=== PATIENT | female | born 1940 | race Caucasian/White ===

== ENCOUNTER 2017-01-25 23:40 | Emergency (ER) | payer MEDICARE, OTHER ==
--- NOTE | 2017-01-26 00:05 | ED.PDOC ---
History of Present Illness - General Chief Complaint: Trauma Stated Complaint: fall, head injury Time Seen by Provider: 01/26/17 00:01 Source: patient Exam Limitations: no limitations - History of Present Illness Initial Comments: PT REPORTS THAT SHE WAS BACKING OUT OF HER SLIPPERS WHEN SHE LOST HER BALANCE AND FELL BACKWARDS HITTING HER HEAD ON THE DOOR JAMB AND NIGHTSTAND. PT DENIES LOSS OF CONSCIOUSNESS BUT DOES REPORT FEELING DIZZY AND REPORTS MILD HEADACHE AND NECK PAIN. Occurred: just prior to arrival Severity: mild Pain Location: head, neck Method of Injury: fall Improving Factors: nothing Worsening Factors: nothing Loss of Consciousness: no loss of consciousness Associated Symptoms (Fall): dizziness, headache Allergies/Adverse Reactions: Allergies Codeine Allergy (Verified 01/26/17 00:10) Penicillins Allergy (Verified 01/26/17 00:10) Home Medications: Ambulatory Orders Aspirin [Aspirin Adult Low Dose] 81 mg PO DAILY 01/26/17 Atorvastatin Calcium [Lipitor] 10 mg PO DAILY 01/26/17 Cetirizine HCl [ZyrTEC] 10 mg PO DAILY 01/26/17 Olmesartan Medoxomil-Hydrochlo [Benicar Hct 20-12.5 mg] 1 tab PO DAILY 01/26/17 Omeprazole Magnesium [Prilosec Otc] 20 mg PO DAILY 01/26/17 Red Blanding [place]is[place] Extract [Promensil] 500 mg PO DAILY 01/26/17 Review of Systems - Review of Systems Constitutional: Denies: chills, fever EENTM: Denies: ear pain, nose congestion Respiratory: Denies: cough, short of breath Cardiology: Denies: chest pain, palpitations Gastrointestinal/Abdominal: Denies: nausea, vomiting Genitourinary: Denies: frequency, hematuria Musculoskeletal: States: see HPI, neck pain. Denies: joint pain Skin: Denies: change in color, dryness Neurological: States: see HPI, headache. Denies: paresthesia Endocrine: States: no symptoms reported Hematologic/Lymphatic: States: no symptoms reported Past Medical History (General) - Patient Medical History Hx MRSA: Yes - Abdomen 2012, Abdomen 2015 MRSA Source:: Wound Family Medical History - Family History Mother Living Status: Cause of : lung cancer Hx Family Cancer: Yes Hx Family;Other: Lung cancer Father Living Status: Cause of : heart attack Hx Family Hypertension: Yes Hx Cardiac Disease: Yes Physical Exam - Physical Exam General Appearance: Alert, Comfortable, No apparent distress Head Injury: no evidence of injury Eye Exam: bilateral normal ENT Exam: hearing grossly normal - SMALL SUPERFICIAL LACERATION LOCATED ON L EAR. Neck Exam: non-tender, normal alignment, normal inspection - C COLLAR IN PLACE Gastrointestinal/Abdominal: non tender, soft Back Exam: normal inspection, vertebral tenderness - LUMBAR REGION Extremity Exam: no evidence of injury Neurologic: no motor/sensory deficits, alert, normal mood/affect, oriented x 3 Skin Exam: normal color, warm/dry - Prentiss Coma Score Best Eye Response (Prentiss): (4) open spontaneously Best Verbal Response (Prentiss): (5) oriented Best Motor Response (Prentiss): (6) obeys commands Maxime Total: 15 Progress - Progress Progress: 01/26/17 01:30 PREVIOUS RECORDS REVIEWED REVEALING PT HAS NO PRIOR VISITS TO THE ED. 01/26/17 01:57 PT RESTING COMFORTABLY, CT AND XRAY FINDINGS DISCUSSED. C-COLLAR REMOVED. PT ABLE TO MOVE NECK WITHOUT PAIN. - EKG/XRAY/CT XRAY: LUMBAR SPINE Xray Comments: NEGATIVE PER RAD CT: HEAD/C-SPINE: NEGATIVE PER RAD Departure - Departure Clinical Impression: Strain of neck muscle, Head injury due to trauma, Lumbar contusion Time of Disposition: 02:00 Disposition: Discharge to Home or Self Care Condition: Good Departure Forms: ED Discharge - Pt. Copy, Patient Portal Self Enrollment Instructions: DI for Cervical Muscle Strain, DI for Closed Head Injury Referrals: Blaine Escobedo III, MD [Primary Care Provider] - 1-5 Days Home Medications: Ambulatory Orders Aspirin [Aspirin Adult Low Dose] 81 mg PO DAILY 01/26/17 Atorvastatin Calcium [Lipitor] 10 mg PO DAILY 01/26/17 Cetirizine HCl [ZyrTEC] 10 mg PO DAILY 01/26/17 Olmesartan Medoxomil-Hydrochlo [Benicar Hct 20-12.5 mg] 1 tab PO DAILY 01/26/17 Omeprazole Magnesium [Prilosec Otc] 20 mg PO DAILY 01/26/17 Red Blanding [place]is[place] Extract [Promensil] 500 mg PO DAILY 01/26/17
--- NOTE | 2017-01-26 00:54 | CT ---
EXAM: CT head without contrast. INDICATION: Headache. TECHNIQUE: Contiguous axial CT images of the brain. Intravenous contrast: Absent. DLP 773 mGy-cm. This exam was performed according to our departmental dose-optimization program, which includes automated exposure control, adjustment of the mA and/or kV according to patient size and/or use of iterative reconstruction technique. COMPARISON: None. FINDINGS: Subcutaneous: Unremarkable. No acute intracranial hemorrhage. There is mild diffuse cerebral atrophy with mild periventricular and deep white matter chronic microvascular changes. No midline shift. No mass effect. Ventricles: No hydrocephalus. Farley-white differentiation preserved. Paranasal sinuses/mastoid air cells: Visualized portions are aerated. Bones/orbits: Visualized portions are unremarkable. IMPRESSION: 1. No CT evidence of acute intracranial hemorrhage. Electronically signed by: Isauro Osei MD 01/26/2017 12:54 AM CDT Workstation: [id number]
[2017-01-26 01:02] VITALS: O2SAT 95
--- NOTE | 2017-01-26 01:25 | RAD ---
EXAM: Three view(s) of the lumbar spine. INDICATION: Pain, lumbar spine. COMPARISON: None. FINDINGS: Alignment: Intact. Fracture: No acute compression fracture or subluxation. IMPRESSION: 1. No acute compression fracture. Electronically signed by: Isauro Osei MD 01/26/2017 1:25 AM CDT Workstation: [id number]
--- NOTE | 2017-01-26 01:33 | CT ---
EXAM: CT cervical spine without contrast. INDICATION: Trauma. Neck pain. TECHNIQUE: Contiguous axial CT images of the cervical spine. Intravenous contrast: Absent. Reformats: MPRs created and utilized. DLP 317 mGy-cm. This exam was performed according to our departmental dose-optimization program, which includes automated exposure control, adjustment of the mA and/or kV according to patient size and/or use of iterative reconstruction technique. COMPARISON: None. FINDINGS: Alignment: There is minimal grade one anterolisthesis of C4 over C5 Fracture: No acute fracture or subluxation. Odontoid process: Intact. Prevertebral soft tissues: No edema. Spondylosis: There is multilevel spondylosis, worst at C5-C6 with disc space narrowing, endplate sclerosis and marginal osteophytes. Other: None. IMPRESSION: 1. No CT evidence of acute osseous injury of the cervical spine. Electronically signed by: Isauro Osei MD 01/26/2017 1:33 AM CDT Workstation: [id number]
[2017-01-26] MEDS: ACETAMINOPHEN 500 MG TAB PO ONE (02:01)
[2017-01-26 02:55] VITALS: BP 143/65; TEMP 98.1
== END 2017-01-26 02:55 | disposition home or self-care (01) ==
LOC: ER 23:40
DX: S09.90XA Unspecified injury of head, initial encounter (principal); S16.1XXA Strain of muscle, fascia and tendon at neck level, initial encounter; S30.0XXA Contusion of lower back and pelvis, initial encounter; Z88.6 Allergy status to analgesic agent; Z88.0 Allergy status to penicillin; Z79.82 Long term (current) use of aspirin; Z86.14 Personal history of Methicillin resistant Staphylococcus aureus infection; Z79.899 Other long term (current) drug therapy; W19.XXXA Unspecified fall, initial encounter; Y92.9 Unspecified place or not applicable

== ENCOUNTER → 2017-06-08 | Outpatient (CLI) | payer MEDICARE, OTHER | END | disposition home or self-care (01) | LOC: GMAL 10:50 | PROVIDERS: ATTEND Family Medicine | DX: R53.83 Other fatigue (principal); D51.3 Other dietary vitamin B12 deficiency anemia; E55.9 Vitamin D deficiency, unspecified ==

== ENCOUNTER → 2017-06-14 | Outpatient (CLI) | payer MEDICARE, OTHER ==
--- NOTE | 2017-06-15 17:12 | MAM ---
EXAM DESCRIPTION: 3D Screening BILATERAL : Digital Mammography. CLINICAL HISTORY: 77 years Female SCREENING . No complaints. No family history of breast cancer. Postmenopausal. No HRT. COMPARISON: 2-D digital screening bilateral studies on December 24, 2014 and June 18, 2013. No prior reports available. TECHNIQUE: Bilateral CC and MLO projection full-field images, 3-D tomosynthesis digital mammographic technique. Also bilateral synthesized CC/ MLO full-field images. CAD not utilized. FINDINGS: The breast parenchymal density pattern is: Scattered areas of fibroglandular density. No skin thickening or nipple retraction bilateral solitary microcalcifications. Bilateral intramammary lymph nodes. No focal, stellate mass or density, focal asymmetry , and no suspicious microcalcifications laterally. Stable mammograms compared to prior studies, taking into account differences in mammographic technique IMPRESSION: BI-RADS CATEGORY: 2 - BENIGN FINDINGS. FOLLOW UP: Routine digital bilateral screening, one year interval from May 2017. Written communication explaining the IMPRESSION and follow-up, will be mailed to the patient and referring health care provider. According to the [employer], yearly mammograms are recommended starting at age 40 and continuing as long as a woman is in good health. Any breast change noted on a breast self-exam should be reported promptly to the patient's healthcare provider. Breast MRI is recommended for women with an approximately 20-25% or greater lifetime risk of breast cancer, including women with a strong family history of breast or ovarian cancer and women who have been treated for Hodgkin's disease. A negative mammographic report should not delay tissue diagnosis in patients with significant clinical history or physical findings. Extremely dense breast tissue limits the sensitivity of digital mammography. Electronically signed by: Dung Dexter MD 06/15/2017 5:10 PM CDT
== END | disposition home or self-care (01) ==
LOC: MAMMO 11:12
PROVIDERS: ATTEND Family Medicine
DX: Z12.31 Encounter for screening mammogram for malignant neoplasm of breast (principal)
CPT/HCPCS: 77063; G0202

== ENCOUNTER → 2018-01-11 | Outpatient (CLI) | payer MEDICARE, OTHER ==
--- NOTE | 2018-01-12 10:33 | US ---
THYROID ULTRASOUND CLINICAL INFORMATION: Thyroid nodules. TECHNIQUE: Routine transcutaneous scannin-D and Doppler modes. COMPARISON: None. FINDINGS: Thyroid size: Right 4.2 x 1.7 x 1.6 cm. Left 3.8 x 1.7 x 1.0 cm. Isthmus 1.9 mm thickness. Texture: Heterogeneous. Estimated total number of nodules >/=1 cm: 2 Number of spongiform nodules >/=2 cm not described below (TR1): 0 Number of mixed cystic and solid nodules >/=1.5 cm not described below (TR2): 0 Nodule #: 1 Maximum size: 2.1 cm; All dimensions 1.7 x 1.2 cm Location: right; lower Composition: solid/almost completely solid (2) Echogenicity: very hypoechoic (3) Shape: not [id number]-[id number] (0) Margins: smooth (0) Echogenic foci: none (0) ACR TI-RADS total points: 5. ACR TI-RADS risk category: TR4 (4-6 points) No prior study. ACR TI-RADS recommendation: Ultrasound-guided fine needle aspiration Nodule #: 2 Maximum size: 1.0 cm; All dimensions 1.0 x 0.5 cm Location: right; mid Composition: solid/almost completely solid (2) Echogenicity: hypoechoic (2) Shape: not clflac-ynsv-vufu (0) Margins: smooth (0) Echogenic foci: none (0) ACR TI-RADS total points: 4. ACR TI-RADS risk category: TR4 (4-6 points) No prior study. ACR TI-RADS recommendation: Follow-up ultrasound in 1 year Nodule #: 3 Maximum size: 0.6 cm; All dimensions 0.5 x 0.4 cm Location: left; mid Composition: spongiform (0) Echogenicity: hypoechoic (2) Shape: not ovfokr-ixao-wmgy (0) Margins: smooth (0) Echogenic foci: none (0) ACR TI-RADS total points: 2. ACR TI-RADS risk category: TR2 (2 points) No prior study. ACR TI-RADS recommendation: No further follow-up Soft tissues around the thyroid gland: No distinct solid mass or cyst. No large calcifications or parenchymal edema. No overlying skin changes. No abnormal vascularity. IMPRESSION: 1. 2.1 cm solid hypoechoic nodule (# 1) in the lower right lobe. ACR TI-RADS risk category TR 4. Ultrasound-guided fine-needle aspiration sampling recommended due to size greater than 1.5 cm. Please see below.* 2. 1.0 cm solid hypoechoic nodule(#2) in the mid right lobe. ACR TI-RADS risk category TR 4. One year ultrasound follow-up is recommended. 3. 6 mm spongiform nodule (#3) in the mid left lobe. No ultrasound follow-up is recommended. 4. Soft tissues around the thyroid gland are unremarkable. *ACR TI-RADS recommendations: TR5 (>/=7 points) - FNA if >/=1 cm, follow-up if 0.5 - 0.9 cm every year for 5 years TR4 (4-6 points) - FNA if >/=1.5 cm, follow-up if 1 - 1.4 cm in 1, 2, 3 and 5 years TR3 (3 points) - FNA if >/=2.5 cm, follow -up if 1.5 - 2.4 cm in 1, 3 and 5 years TR2 (2 points) and TR1 (0 points) - No FNA or follow-up * ACR TI-RADS recommends that no more than two nodules with the highest ACR TI-RADS total point should be biopsied and no more than four nodules should be followed. Electronically signed by: Dung Dexter MD 01/12/2018 10:32 AM CDT
== END ==
LOC: US 13:50
PROVIDERS: ATTEND Family Medicine
DX: E04.1 Nontoxic single thyroid nodule (principal)

== ENCOUNTER → 2018-01-26 | Outpatient (CLI) | payer MEDICARE, OTHER ==
--- NOTE | 2018-01-26 10:38 | US ---
Thyroid Ultrasound Biopsy CLINICAL INFORMATION: Hypoechoic 2.1 cm nodule in the right lobe on prior thyroid ultrasound 01/11/2018. TECHNIQUE: Procedure was explained to the patient with risks and benefits. The patient gave verbal and written consent. Sterile preparation draping. 1% xylocaine dermal anesthetic 9-1 mixture with sodium bicarbonate. Sterile ultrasound guidance. A total of 5 passes right thyroid nodule; 3 needle samplings with a separate 1.5 inch, 25-gauge needle per sample, and 2 aspirations, with a separate 1.5 inch, 25-gauge needle/10-cc syringe set, per aspiration. Each sample was placed on a separate slide and fixed in 95% alcohol container. Saccomanno fluid drawn into aspirate needle and rinse injected into Saccomanno container. Specimens to be sent for pathologic examination at remote facility. . Patient tolerated procedure well. Biopsy #: 1 Nodule reference number based on prior diagnostic ultrasound:1 Maximum size: 2.1 cm Location: right; lower ACR TI-RADS risk category: TR4 (4-6 points) Reason for biopsy: meets ACR TI-RADS criteria Complications: None IMPRESSION: Successful ultrasound guided fine needle aspiration of solid hypoechoic thyroid nodule in the lower right lobe, ACR TI-RADS risk category TR 4. Electronically signed by: Dung Dexter MD 01/26/2018 10:37 AM CDT
== END ==
LOC: US 09:00
PROVIDERS: ATTEND Family Medicine
DX: E04.1 Nontoxic single thyroid nodule (principal)

== ENCOUNTER → 2018-07-03 | Outpatient (CLI) | payer MEDICARE, OTHER | LOC: GMAL 11:07 | PROVIDERS: ATTEND Family Medicine | DX: D51.3 Other dietary vitamin B12 deficiency anemia (principal); R53.83 Other fatigue; E55.9 Vitamin D deficiency, unspecified ==

== ENCOUNTER → 2018-07-19 | Outpatient (CLI) | payer MEDICARE, OTHER ==
--- NOTE | 2018-07-21 08:57 | MAM ---
EXAM DESCRIPTION: 3D Screening BILATERAL : Digital Mammography. CLINICAL HISTORY: 78 years Female SCREENING . No complaints. No personal or family history of breast cancer. Childbirth. Postmenopausal. 40 years. No HRT. Lifetime risk of developing breast cancer (Tyrer-Cuzick model)(%): 3.1. COMPARISON: Bilateral screening digital breast tomosynthesis 06/14/2017. TECHNIQUE: Bilateral CC and MLO projection full-field images, digital tomosynthesis mammographic technique. Bilateral digital 2-D full-field MLO images. CAD not available for tomosynthesis or 2-D images. FINDINGS: The breast parenchymal density pattern is: Scattered areas of fibroglandular density. No skin thickening or nipple retraction. Bilateral small solitary calcifications. Small vascular calcification on the right. No new focal, stellate mass or density, focal asymmetry , and no suspicious microcalcifications bilaterally. Stable mammograms compared to prior study. Taking into account, differences in mammographic technique. IMPRESSION: Benign exam. BIRAD CATEGORY: 2 BENIGN FINDINGS. RECOMMENDATIONS: FOLLOW UP: Routine digital bilateral mammographic screening, one year interval from June 2018. Written communication explaining the IMPRESSION and follow-up, will be mailed to the patient and referring health care provider. According to the [employer], yearly mammograms are recommended starting at age 40 and continuing as long as a woman is in good health. Any breast change noted on a breast self-exam should be reported promptly to the patient's healthcare provider. Breast MRI is recommended for women with an approximately 20-25% or greater lifetime risk of breast cancer, including women with a strong family history of breast or ovarian cancer and women who have been treated for Hodgkin's disease. A negative mammographic report should not delay tissue diagnosis in patients with significant clinical history or physical findings. Extremely dense breast tissue limits the sensitivity of digital mammography. Electronically signed by: Dung Dexter MD 07/21/2018 8:55 AM [employer]ALLIST[employer] TEACHER
== END ==
LOC: MAMMO 15:00
PROVIDERS: ATTEND Family Medicine
DX: Z12.31 Encounter for screening mammogram for malignant neoplasm of breast (principal)

== ENCOUNTER → 2019-01-02 | Outpatient (CLI) | payer MEDICARE, OTHER | LOC: GMAL 10:28 | PROVIDERS: ATTEND Family Medicine | DX: E55.9 Vitamin D deficiency, unspecified (principal); I10 Essential (primary) hypertension; E11.9 Type 2 diabetes mellitus without complications; E78.49 Other hyperlipidemia ==

== ENCOUNTER → 2019-04-03 | Outpatient (CLI) | payer MEDICARE, OTHER | LOC: GMAL 10:57 | PROVIDERS: ATTEND Family Medicine | DX: M10.9 Gout, unspecified (principal); I10 Essential (primary) hypertension; E11.9 Type 2 diabetes mellitus without complications; E78.49 Other hyperlipidemia ==

== ENCOUNTER → 2019-05-09 | Outpatient (CLI) | payer MEDICARE, OTHER | LOC: GMAL 10:57 | PROVIDERS: ATTEND Family Medicine | DX: M10.9 Gout, unspecified (principal); I10 Essential (primary) hypertension ==

== ENCOUNTER → 2019-12-04 | Outpatient (CLI) | payer MEDICARE, OTHER | LOC: GMAL 11:15 | PROVIDERS: ATTEND Family Medicine | DX: M10.9 Gout, unspecified (principal); I10 Essential (primary) hypertension; E11.9 Type 2 diabetes mellitus without complications; E78.49 Other hyperlipidemia ==

== ENCOUNTER 2020-07-25 12:45 | Emergency (ER) | payer MEDICARE, OTHER ==
[2020-07-25] MEDS ORDERED: SODIUM CHLORIDE 0.9% (FLUSH) 10 ML SYG IV PRN (12:54)
[2020-07-25] MEDS ORDERED: NITROGLYCERIN 0.4 MG 25 EA TAB SL ONE ×2 (12:55→13:53)
--- NOTE | 2020-07-25 12:57 | ED.PDOC ---
History of Present Illness - General Time Seen by Provider: 07/25/20 12:54 Source: patient, EMS - History of Present Illness Initial Comments: 80-year-old female with past medical history of hypertension, GERD who is brought in by EMS from home for chief complaint of chest pain. Reports that symptoms began last night around 10 PM shortly after eating. Reports as feeling of indigestion in the lower anterior central chest wall which radiates to the up per back between the shoulder blades, was constant and severe/sharp last night at 10/10 severity. She reports that she did take some Prilosec 40 mg last night w/o relief and then Mylanta this morning and the pain has now eased to about 6/10 severity. Pain does not worsen with activity/exertion. She does report intermittent dry cough but denies any dyspnea, fevers, chills, nausea/vomiting/diarrhea, leg swelling. No reported cardiac history. EMS reported blood pressure slightly elevated and slightly abnormal EKG without ST elevations in route. Pain seemed to improve somewhat with 1 nitroglycerin and 4 baby aspirins in route. Allergies/Adverse Reactions: Allergies Codeine Allergy (Verified 07/25/20 13:21) Penicillins Allergy (Verified 07/25/20 13:21) Home Medications: Ambulatory Orders Atorvastatin Calcium [Lipitor] 10 mg PO DAILY 01/26/17 Losartan Potassium & Hydrochlo [Losartan Potassium/Hydroc 50-12.5 mg] 1 tab PO 03/29/18 Review of Systems - Review of Systems Review of Systems: 07/25/20 12:57 as per HPI All other Systems: Reviewed and Negative Past Medical History (General) - Patient Medical History Hx Seizures: No Hx Stroke: No Hx Dementia: No Hx Asthma: No Hx of COPD: No Hx Cardiac Disorders: No Hx Congestive Heart Failure: No Hx Pacemaker: No Hx Hypertension: Yes Hx Thyroid Disease: No Hx Diabetes: No Hx Gastroesophageal Reflux: No Hx Renal Disease: No Hx Cancer: No Hx of HIV: No Hx Hepatitis C: No Hx MRSA: No MRSA Source:: Wound - Vaccination History Hx Tetanus, Diphtheria Vaccination: Yes Hx Influenza Vaccination: Yes Hx Pneumococcal Vaccination: Yes - Social History Hx Tobacco Use: No Hx Chewing Tobacco Use: No Hx Alcohol Use: No Hx Substance Use: No Hx Substance Use Treatment: No Hx Depression: No Hx Physical Abuse: No Hx Emotional Abuse: No Hx Suspected Abuse: No Family Medical History - Family History Mother Living Status: Cause of : lung cancer Hx Family Cancer: Yes Hx Family;Other: Lung cancer Father Living Status: Cause of : heart attack Hx Family Hypertension: Yes Hx Cardiac Disease: Yes Physical Exam - Physical Exam General Appearance: Alert, Comfortable, No apparent distress Eye Exam: bilateral normal Ears, Nose, Throat: hearing grossly normal, normal ENT inspection, normal pharynx Neck: full range of motion, supple, normal inspection Respiratory: chest non-tender, rales - Bibasilar rales w/o rhonchi or wheezing Cardiovascular/Chest: normal peripheral pulses, regular rate, rhythm, no edema, no gallop, no JVD, systolic murmur - 3/6 systolic murmur best heard at LUSB, other - CP not reproducible Peripheral Pulses: radial,right: 2+, radial,left: 2+ Gastrointestinal/Abdominal: non tender, soft, no organomegaly Back Exam: normal inspection, no CVA tenderness, no vertebral tenderness Extremity: normal range of motion, non-tender, normal inspection, no pedal edema, no calf tenderness Neurologic: 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 Consider also gastric/peptic ulcer, ACS, CHF, p neumonia, COVID-19, musculoskeletal, anxiety, other -Patient stable, no acute distress, blood pressure slightly elevated but vitals otherwise normal -Obtain stat cardiac work-up, rapid Covid -We will give another nitroglycerin sublingual and GI cocktail and reassess 07/25/20 14:04 -Initial Troponin came back elevated to 7.2. On repeat analysis of her prehospital EKG by ambulance before her first nitroglycerin she does have borderline ST segment elevation of 2 mm and V2 and V3 with some T wave inversion noted in aVL although she does not have significant ST segment depression. This along with her markedly elevated troponin makes me concerned for STEMI. EKG upon arrival here shows improvement in the ST segment elevations. I discussed this as well with Dr. Walters at [facility] who agrees. We will emergently transfer to higher level of care for cardiology consultation. Begin treatment here for STEMI with TNKase, Lovenox, nitroglycerin drip. She reports her pain is currently improved to 3/10 severity. Remains stable otherwise. 07/25/20 15:09 -Patient remained stable, chest pain nearly resolved, troponin has increased to 8.1. Helicopter transport team now here. Shravan Anderson MD Billing #[id number] 07/25/20 12:54 Sodium Chloride 0.9% (Flush) [Saline Flush Syringe] 10 ml IV PRN PRN Pulse Oximetry Assessment DAILY 07/25/20 13:00 EKG STAT 07/25/20 14:00 Nitroglycerin/D5w IV 50,000 mcg Premix Bottle 1 bottle IVS PRN 07/25/20 14:15 EKG STAT 07/25/20 14:46 RAPID SARS-CoV-2 RNA Stat 07/26/20 09:00 Pulse Ox Daily Laboratory Results - last 24 hr 07/25/20 07/25/20 07/25/20 13:08 13:08 13:08 WBC 9.2 RBC 4.27 Hgb 12.3 Hct 36.6 MCV 85.8 MCH 28.7 MCHC 33.5 RDW 13.5 Plt Count 175 MPV 9.9 Absolute Neuts (auto) 7.30 H Absolute Lymphs (auto) 1.20 Absolute Monos (auto) 0.60 Absolute Eos (auto) 0.10 Absolute Basos (auto) 0.10 Neutrophils % 79.4 H Lymphocytes % 12.7 L Monocytes % 6.5 Eosinophils % 0.7 L Basophils % 0.7 Sodium 142 Potassium 4.8 Chloride 105 Carbon Dioxide 26 Anion Gap 15.8 BUN 25 H Creatinine 1.13 BUN/Creatinine Ratio 22.1 H Random Glucose 129 H Serum Osmolality 289.2 Calcium 9.3 Total Bilirubin 0.4 AST 55 H ALT 16 Alkaline Phosphatase 67 Troponin I B-Natriuretic Peptide 285.0 H* Serum Total Protein 7.6 Albumin 3.9 Globulin 3.7 H Albumin/Globulin Ratio 1.1 Lipase 47 07/25/20 07/25/20 13:08 14:13 WBC RBC Hgb Hct MCV MCH MCHC RDW Plt Count MPV Absolute Neuts (auto) Absolute Lymphs (auto) Absolute Monos (auto) Absolute Eos (auto) Absolute Basos (auto) Neutrophils % Lymphocytes % Monocytes % Eosinophils % Basophils % Sodium Potassium Chloride Carbon Dioxide Anion Gap BUN Creatinine BUN/Creatinine Ratio Random Glucose Serum Osmolality Calcium Total Bilirubin AST ALT Alkaline Phosphatase Troponin I 7.27 H* 8.14 H* B-Natriuretic Peptide Serum Total Protein Albumin Globulin Albumin/Globulin Ratio Lipase - EKG/XRAY/CT EKG: Sinus - Normal sinus rhythm, heart rate 70, minimal ST segment elevations noted in V2 and V3 with T wave inversions in aVL, no ST segment depressions noted, axis normal, intervals normal, ST segment elevations appear improved from prehospital EKG XRAY: chest - Bilateral mild interstitial opacities noted likely atelectasis but also possibly pulmonary edema versus infiltrate per my read - Additional EKG/XRAY/Consults EKG #2: Unchanged from - Initial hospital EKG Departure - Departure Clinical Impression: STEMI (ST elevation myocardial infarction) Qualifiers: Involved coronary artery: unspecified coronary artery Qualified Code(s): I21.3 - ST elevation (STEMI) myocardial infarction of unspecified site Time of Disposition: 14:13 Disposition: Transfer to Hospital Condition: Serious Referrals: Blaine Escobedo III, MD [Primary Care Provider] - 1-2 Weeks Home Medications: Ambulatory Orders Atorvastatin Calcium [Lipitor] 10 mg PO DAILY 01/26/17 Losartan Potassium & Hydrochlo [Losartan Potassium/Hydroc 50-12.5 mg] 1 tab PO 03/29/18 Critical Care Note - Critical Care Note Total Time (mins): 45 Comments: Critical Care Time: Upon my evaluation, this patient had a high probability of life-threatening deterioration due to STEMI, which required my direct attention, intervention, and management. I have provided 45 minutes of critical care time exclusive of separately billable procedures. My time included: direct patient care, review of labs and radiology, obtaining history from and counseling the patient and the family, discussion with consultants and other medical personnel, documentation, and monitoring for potential decompensation. Transfer to Outside Facility - Transfer Information Decision to Transfer Date: 07/25/20 Decision to Transfer Time: 14:14 Reason for Transfer: required specialist not available Accepting Provider:: Dr. Talbot Accepting Facility: [facility]
[2020-07-25] MEDS ORDERED: NITROGLYCERIN/D5W IV 50,000 MCG in PREMIX BOTTLE 1 BOTTLE IVS SCH (14:00)
[2020-07-25] MEDS ORDERED: ENOXAPARIN SODIUM 80 MG/0.8 ML SYG SUBCU ONE (14:01)
--- NOTE | 2020-07-25 14:08 | RAD ---
EXAM DESCRIPTION: Chest,1 View CLINICAL HISTORY: chest pain COMPARISON: None. IMPRESSION: Single AP portable upright view of the chest shows cardiac silhouette and pulmonary vasculature to be within normal limits. Mild calcifications of the thoracic aortic arch. Lungs are normally aerated. Mild interstitial thickening in the lung bases could represent atelectasis versus developing pulmonary infiltrates. No obvious pleural effusion or pneumothorax is seen. Electronically signed by: Yasir Harrison MD 07/25/2020 2:06 PM [employer]GR[employer]OVER
[2020-07-25] MEDS ORDERED: TENECTEPLASE 50 MG VIAL IV ONE (14:11)
[2020-07-25 16:21] VITALS: BP 140/80; TEMP 98.3; O2SAT 98
== END 2020-07-25 15:40 | disposition short-term general hospital (02) ==
LOC: ER 12:45
DX: I21.3 ST elevation (STEMI) myocardial infarction of unspecified site (principal); R91.8 Other nonspecific abnormal finding of lung field; R05 Cough; I10 Essential (primary) hypertension; Z20.828 Contact with and (suspected) exposure to other viral communicable diseases; Z79.899 Other long term (current) drug therapy; Z88.5 Allergy status to narcotic agent; Z88.0 Allergy status to penicillin
CPT/HCPCS: 36415; 71045; 80053; 83690; 83880; 84484; 85025; 87635; 93005; J1650; J3101